=== PATIENT | female | born 1960 | race Caucasian/White ===

== ENCOUNTER → 2016-12-11 16:26 | Outpatient (CLI) | payer OTHER | END | disposition home or self-care (01) | LOC: D.MAMMO 11:00 | DX: Z12.31 Encounter for screening mammogram for malignant neoplasm of breast (principal) ==

== ENCOUNTER → 2018-04-15 08:12 | Outpatient (CLI) | payer OTHER | END | disposition home or self-care (01) | LOC: D.MRI 08:12 | DX: M54.16 Radiculopathy, lumbar region (principal) ==

== ENCOUNTER 2018-05-20 08:00 | Outpatient (CLI) | payer OTHER | END 2018-05-20 09:00 | disposition home or self-care (01) | LOC: D.MAMMO 08:00 | DX: Z12.31 Encounter for screening mammogram for malignant neoplasm of breast (principal) ==

== ENCOUNTER → 2018-06-11 18:46 | Outpatient (CLI) | payer OTHER | END | disposition home or self-care (01) | LOC: D.MAMMO 14:00 | DX: R92.8 Other abnormal and inconclusive findings on diagnostic imaging of breast (principal) ==

== ENCOUNTER 2018-09-27 09:49 | Emergency (ER) | payer OTHER ==
[~2018-09-27] VITALS: Ht 170.2 cm; Wt 77.3 kg
[2018-09-27 09:53] VITALS: Ht 170.2 cm; Wt 77.3 kg
[2018-09-27] MEDS ORDERED: NEURONTIN600 MG PO (09:54)
[2018-09-27] MEDS ORDERED: CELEBREX200 MG PO (09:54)
[2018-09-27] MEDS ORDERED: NORCO 10-325 TA1 TAB PO (09:54)
[2018-09-27] MEDS ORDERED: LIPITOR40 MG (09:55)
[2018-09-27] MEDS ORDERED: NEXIUM20 MG (09:55)
[2018-09-27] MEDS ORDERED: VALIUM 2 MG TAB2 MG (09:55)
[2018-09-27] MEDS ORDERED: ESTRACE 0.5 MG0.5 MG PO (09:55)
[2018-09-27] MEDS ORDERED: CYCLOBENZAPRINE10 MG PO (09:55)
[2018-09-27 11:23] VITALS: BP 135/78
== END 2018-09-27 11:24 | disposition home or self-care (01) ==
LOC: D.ER 09:49
DX: S62.002A Unspecified fracture of navicular [scaphoid] bone of left wrist, initial encounter for closed fracture (principal); X50.1XXA Overexertion from prolonged static or awkward postures, initial encounter; Y93.89 Activity, other specified; Y92.019 Unspecified place in single-family (private) house as the place of occurrence of the external cause; F17.200 Nicotine dependence, unspecified, uncomplicated